=== PATIENT | female | born 1990 | race Caucasian/White ===

== ENCOUNTER 2018-11-15 10:34 | Emergency (ER) | payer SELFPAY ==
[~2018-11-15] VITALS: Ht 139.7 cm; Wt 71.3 kg
[2018-11-15 10:55] VITALS: BP 124/98
--- NOTE | 2018-11-15 10:55 | NUR ---
PT AMBULATES TO BED 3
--- NOTE | 2018-11-15 11:05 | NUR ---
27 Y/O F BIB SELF WITH C/O RT MEDIAL WRIST PAIN 5/10 X 3 MONTHS WORSE THE LAST 2 DAYS. DENIES INJURY, ABLE MOVE WRIST WITHOUT DIFFICULTY - SWELLING - DISCOLORATION - INJURY + PULSES HX; DENIES RX; DENIES
[2018-11-15 11:42] VITALS: BP 122/89
--- NOTE | 2018-11-15 11:43 | NUR ---
Patient discharged with v/s stable. Written and verbal after care instructions given and explained. Patient verbalized understanding. Ambulatory with steady gait. All questions addressed prior to discharge. Advised to follow up with PMD.
== END 2018-11-15 11:43 | disposition home or self-care (01) ==
LOC: MED 10:34
DX: M65.4 Radial styloid tenosynovitis [de Quervain] (principal)
CPT/HCPCS: 99283